=== PATIENT | female | born 1970 | race Caucasian/White ===

== ENCOUNTER 2018-04-26 13:54 | Outpatient (CLI) | payer OTHER ==
--- NOTE | 2018-04-26 16:52 | Diagnostic Imaging Report ---
Indications: Jaw pain Technique: Spiral images obtained through the facial bones. No IV contrast utilized. Multiplanar reconstructions were generated.Total dose length product 571 mGycm. CTDIvol(s) 28 mGy. Dose reduction achieved using automated exposure control Comparison: none Findings: Normal anatomic alignment of the temporomandibular joints. There is considerable narrowing, likely degenerative, of the left temporomandibular joint, and slight degenerative narrowing of the anterior right temporomandibular joint. There is degenerative irregularity of the articular surfaces of the right mandibular head and glenoid fossa, equivocally on the left. The mandibles themselves appear to be intact. The dentition is intact. There is minimal mucosal disease in the left maxillary sinus. The sinuses are otherwise clear. No acute fractures. No dislocations. The optic globes and retroseptal orbits are intact. The nasal septum is midline. The maxillary ostia are patent. The visualized intracranial structures are unremarkable. The facial soft tissues and upper aerodigestive tract are unremarkable. 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 Note that intake history suggests history of internal derangement. This would be better assessed with MRI if clinically indicated Minimal sinus disease of the left maxillary sinus No other significant abnormality The CT scanner at [facility] is accredited by the [employer] and the scans are performed using protocols designed to limit radiation exposure to as low as reasonably achievable to attain images of sufficient resolution adequate for diagnostic evaluation.
== END 2018-04-26 15:54 | disposition home or self-care (01) ==
LOC: CAT 13:54
DX: M26.629 Arthralgia of temporomandibular joint, unspecified side (principal); J32.0 Chronic maxillary sinusitis
CPT/HCPCS: 70486